=== PATIENT | male | born 1970 | race African-American/Black ===

== ENCOUNTER 2024-04-12 13:18 | Emergency (ER) | payer MEDICARE, MEDICAID, SELFPAY ==
[2024-04-12 13:36] VITALS: BP 171/90; PULSE 68; RESP 18; TEMP 36.8; O2SAT 99; BMI 30.5
--- NOTE | 2024-04-12 13:42 | XR_ITS ---
Examination: Knee, right , 3 views Technique: Knee AP, lateral, oblique 3 views Date and time of exam: April 12, 2024 1406 hours INDICATIONS: Injury to the knee today, knee pain. FINDINGS: No acute fracture No dislocation Moderate knee effusion Advanced tricompartment osteoarthritis with small ossified joint bodies anterior posterior knee joint IMPRESSION: No acute fracture
--- NOTE | 2024-04-12 13:42 | XR_ITS ---
Examination: Lumbar spine 3 views Technique one AP lateral coned lateral lower lumbar spine 3 views Exam date and time: April 12, 2024 1416 hours INDICATIONS: Injury to lower back today, lower back pain FINDINGS: Adequate alignment lumbar vertebral bodies No lumbar fracture Mild disc narrowing lower 3 lumbar levels No spondylolisthesis IMPRESSION: No lumbar fracture
--- NOTE | 2024-04-12 13:42 | XR_ITS ---
Examination: Thoracic spine 3 views Technique one AP lateral coned lateral upper dorsal spine 3 views Exam date and time: April 12, 2024 1413 hours INDICATIONS: Injury to the mid back today, mid back pain. FINDINGS: Adequate alignment thoracic vertebral bodies No fracture Mild to moderate thoracic disc narrowing IMPRESSION: No thoracic fracture
[2024-04-12] MEDS: HYDROcodone/APAP 5/325 TABLET 1 TAB PO (13:47)
[2024-04-12] MEDS: IBUPROFEN TAB 400 MG TABLET 800 MG PO (13:47)
--- NOTE | 2024-04-12 15:09 | PD.EDLOWEX ---
Lower Extremity Injury RME/HPI General Chief Complaint: Extremity Injury, Lower Stated Complaint: RIGHT KNEE AND BACK INJURY POST FALL STORE Time Seen by Provider: 04/12/24 13:38 Arrival date/time: 04/12/24 13:18 53-year-old male presents to the emergency department a stating he was at the local supermarket today and fell while in the bathroom on a puddle of water patient reports twisting his right knee and lower back pain patient reports no head or neck injury Limitations: no limitations Related Data Previous Rx's ?Medication ?Instructions ?Recorded flash glucose scanning reader #1 ea 02/18/22 (FreeStyle Esvin 2 [place]) flash glucose sensor (FreeStyle #1 ea 03/27/22 Esvin 2 Sensor kit) hydrochlorothiazide 25 mg tablet 25 mg PO QAM #30 tabs 03/27/22 blood pressure monitor #1 ea 04/05/22 arm brace (Wrist Brace) #1 ea 05/03/22 atorvastatin 80 mg tablet 80 mg PO QPM #30 tabs 05/03/22 diclofenac sodium 1 % topical gel 2 g topical QID #100 grams 05/03/22 (Voltaren Arthritis Pain) empagliflozin 10 mg tablet 10 mg PO QAM #30 tabs 05/03/22 (Jardiance) losartan 50 mg tablet 100 mg (2 x 50 mg) PO QDAY #60 tabs 05/03/22 metformin 1,000 mg tablet 1,000 mg PO BID #120 tabs 05/03/22 hydrocodone 5 mg-acetaminophen 325 1 tab PO BID PRN pain #10 tabs 04/12/24 mg tablet ibuprofen 800 mg tablet 800 mg PO TID PRN pain #30 tabs 04/12/24 Allergies Allergy/AdvReac Type Severity Reaction Status Date / Time No Known Allergies Allergy Verified 04/12/24 13:20 Review of Systems Review of Systems Systems Reviewed: All systems reviewed, normal except as documented Constitutional Constitutional: Reports system reviewed and no additional complaints, except as documented, Denies fever(s) and Denies headache(s) Eyes Eyes: Reports system reviewed and no additional complaints, except as documented and Denies blurry vision ENT Ears, Nose, Mouth, and Throat: Reports system reviewed and no additional complaints, except as documented, Denies headache(s), Denies nasal congestion, Denies nasal discharge and Denies neck pain Cardiovascular Cardiovascular: Reports system reviewed and no additional complaints, except as documented, Denies chest pain and Denies dyspnea Respiratory Respiratory: Reports system reviewed and no additional complaints, except as documented, Denies chest congestion, Denies cough and Denies dyspnea Gastrointestinal Gastrointestinal: Reports system reviewed and no additional complaints, except as documented and Denies abdominal pain Musculoskeletal Musculoskeletal: Reports system reviewed and no additional complaints, except as documented, Reports abnormal gait, Reports arthralgias, Reports joint swelling, Denies neck pain, Denies numbness, Reports stiffness and Denies tingling Integumentary/Breasts Skin/Breast: Reports system reviewed and no additional complaints, except as documented and Denies rash Neurologic Neurologic: Reports system reviewed and no additional complaints, except as documented, Reports as per HPI, Reports abnormal gait, Denies headache(s), Denies numbness and Denies tingling Past Medical History Past Medical History CARDIAC: Positive Hypercholesterolemia and Hypertension; Negative Congestive Heart Failure RESPIRATORY: Negative Chronic Obstructive Pulmonary Disease (COPD) GENITOURINARY: Negative Renal Disease ENDOCRINE: Positive Diabetes Mellitus Type 2; Negative Diabetes Mellitus Type 1 Social History SMOKING STATUS: Never smoker SUBSTANCE USE: does not use OCCUPATION: Retired ED Exam General Limitations: Present no limitations General appearance: Present alert and in no apparent distress Head Head exam: Present atraumatic, normocephalic and normal inspection Eye Eye exam: Present normal appearance, PERRL and EOMI; Absent conjunctival injection ENT ENT exam: Present normal exam, normal oropharynx and mucous membranes moist Neck Neck exam: Present normal inspection, full ROM and trachea midline Chest Chest inspection: Present normal inspection and symmetric chest wall rise Respiratory Respiratory exam: Present normal lung sounds bilaterally Cardiovascular Cardiovascular exam: Present regular rate, normal rhythm and normal heart sounds Abdominal Exam Abdominal exam: Present soft and normal bowel sounds; Absent distention, tenderness, guarding, rebound or rigidity Extremities Exam Extremities exam: Present full ROM, tenderness, normal capillary refill and joint swelling; Absent pedal edema or calf tenderness Back Exam Back exam: Present normal inspection and full ROM Neurological Exam Neurological exam: Present alert, oriented X3, CN II-XII intact, normal gait and reflexes normal; Absent motor sensory deficit Psychiatric Psychiatric exam: Present normal affect and normal mood Skin Skin exam: Present warm, dry, intact and normal color; Absent rash Course Quality Measures none Orders Category Date Time Status Crutches .NOW Care 04/12/24 15:13 Active juancho wrap [Splint / Immobilizer] STAT Care 04/12/24 15:13 Active XR knee RT 3V Stat Exams 04/12/24 13:42 Completed XR lumbar spine 2-3V Stat Exams 04/12/24 13:42 Completed XR thoracic spine 3V Stat Exams 04/12/24 13:42 Completed HYDROcodone*/APAP 5/325 [[place] 5/325] Med 04/12/24 13:42 Discontinued 1 tab PO X1 ONE Ibuprofen Tab [Motrin Tab] Med 04/12/24 13:42 Discontinued 800 mg PO X1 ONE Vital Signs Vital signs: Vital Signs Temperature 98.3 F 04/12/24 13:36 Pulse Rate 68 04/12/24 13:36 Respiratory Rate 18 04/12/24 13:36 Blood Pressure 171/90 H 04/12/24 13:36 Pulse Oximetry (%) 99 04/12/24 13:36 Oxygen Delivery Method Room Air 04/12/24 13:36 O2 saturation 99% room air WNL Extremity Injury, Lower MDM Narrative MDM Narrative:: 53-year-old male presents to the emergency department a stating he was at the local [employer] today and fell while in the bathroom on a puddle of water patient reports twisting his right knee and lower back pain patient reports no head or neck injury On exam patient well-appearing patient does not appear ill or toxic and in no acute distress On exam patient does have tenderness and swelling to the right knee X-ray of the right knee obtained no acute fracture dislocation noted X-ray of lumbar spine obtained as well as thoracic spine no acute fracture noted Explained to the patient although the x-rays are normal I do suspect he has ligamentous tear and will require outpatient MRI Patient medicated here for pain given crutches and Juancho wrap Patient discharged home in no distress to follow-up with primary care doctor in the next 24 to 48 hours and for any worsening symptoms to return to the ER immediately Patient data External records reviewed:: [facility] previous records Clinical information provided by:: patient Social determinants that could affect healthcare access:: none Patient has the following chronic illnesses:: See history How is presenting disease/condition affected by chronic disease/condition?: no chronic disease Evaluation data The following diagnostics were reviewed and interpreted by me:: radiology exam(s) Lab and/or radiology exams considered but not ordered:: Radiology obtain Interpretation Summary: Reviewed by me Medications / Prescriptions Medications or Prescriptions considered but not ordered:: Given Medication administrations:: Medication Administration History Discontinued Medications Hydrocodone Bitart/Acetaminophen (Hydrocodone/Apap 5/325 Tablet) 1 tab PO X1 ONE Stop: 04/12/24 13:43 Last Admin: 04/12/24 13:47 Dose: 1 tab Documented By: Ibuprofen (Ibuprofen Tab 400 Mg Tablet) 800 mg PO X1 ONE Stop: 04/12/24 13:43 Last Admin: 04/12/24 13:47 Dose: 800 mg Documented By: Given Consultations Consultation(s) initiated? (list below): No Diagnosis Extremity Injury, Lower Differential Diagnosis: acute internal derangement of knee and other (Knee sprain, knee fracture) Most likely diagnosis given after review of the tests above:: Knee sprain Admission Indicated Admission indicated?: not indicated Admission Request Was there a request for admission?: No Disposition Plan Disposition Plan: Discharge Discharge Attestation Discharge Attestation: The patient and all family members were given an opportunity to ask questions and understood the discharge instructions. Discharge instructions specifically effects, indications for sooner follow up or return to the emergency department, and the expected course of current diagnosis. Patient condition: Stable Discharge Plan Plan Patient Disposition: HOME (Self Care) Disposition Comment: Stable Prescriptions/Referrals Prescriptions/Med Rec: New ibuprofen 800 mg tablet 800 mg PO TID PRN (Reason: pain) Qty: 30 0RF hydrocodone-acetaminophen 5-325 mg tablet 1 tab PO BID MDD 10 PRN (Reason: pain) Qty: 10 0RF No Action (DME) blood pressure monitor Kit See Rx Instructions .Route Qty: 1 0RF Rx Instructions: As directed (DME) Wrist Brace Misc See Rx Instructions .Route Qty: 1 0RF Rx Instructions: As directed metformin 1,000 mg tablet 1,000 mg PO BID Qty: 120 3RF losartan 50 mg tablet 100 mg PO QDAY Qty: 60 3RF Jardiance 10 mg tablet 10 mg PO QAM Qty: 30 0RF atorvastatin 80 mg tablet 80 mg PO QPM Qty: 30 0RF diclofenac sodium [Voltaren Arthritis Pain] 1 % gel 2 g topical QID Qty: 100 0RF Rx Instructions: apply to wrist or hand as needed for pain (DME) FreeStyle Esvin 2 Sensor Kit See Rx Instructions .Route Qty: 1 0RF Rx Instructions: As directed hydrochlorothiazide 25 mg tablet 25 mg PO QAM Qty: 30 0RF (DME) FreeStyle Esvin 2 [place] Misc See Rx Instructions .Route Qty: 1 0RF Rx Instructions: As directed Referrals: Jae Mccormick MD [Primary Care Provider] - 04/13/24 Problem List Clinical Impression: Acute internal derangement of knee, Lumbar radiculopathy Patient/Caregiver Discharge Instructions Education Materials: Back Safety: Lifting Additional Instructions: Please follow up with your primary care doctor in the next 24-48hrs for any worsening symptoms return here immediately Please follow-up with your primary care doctor as they can do an MRI of your right knee Print Language: Thai Stand Alone Forms: Twyla Award Info., Work/School Release, Patient Portal Info Letter PA/INSTRUCTOR TAP DANCING Supervising Physician PA/INSTRUCTOR TAP DANCING Supervising Physician: dr lincoln
== END 2024-04-12 18:09 | disposition home or self-care (01) ==
PROVIDERS: Emergency Provider Emergency Medicine; PCP Family Medicine
DX: M54.16 Radiculopathy, lumbar region (principal); M23.91 Unspecified internal derangement of right knee
CPT/HCPCS: 72072; 72100; 73562; 99283; A9270

== ENCOUNTER → 2024-05-13 | Outpatient (CLI) | payer MEDICARE, MEDICAID, SELFPAY ==
--- NOTE | 2024-05-13 10:30 | XR_ITS ---
Exam: MRI knee without contrast, right Date and time of exam: May 13, 2024 1003 hours INDICATIONS: Anterior right knee pain joint locking clicking stiffness swelling 1 month after a fall with injury to the knee Technique: Multiple axial, coronal, and sagittal sections on the knee have been obtained. T2-Weighted sagittal, fat-suppressed images, TR 3,500, TE 62, T2 weighted coronal fat-saturated images, TR 3,500, TE 62 Proton density sagittal sections, TR 1800, TE 31. T-1 weighted coronal images, TR 524, TE 13.0 Findings: Medial meniscus anterior horn intact. Medial meniscus, body large vertical tear coronal image 13. Posterior horn medial meniscus large vertical tear toward the inner margin sagittal image 7. Lateral meniscus anterior horn is intact Lateral meniscus, body truncation inner margin Posterior horn lateral meniscus complex tear Anterior cruciate ligament absent Posterior cruciate ligament severely attenuated. Knee effusion is moderate. Quadriceps and patellar tendons appear intact. There is no evidence of tendinosis. Medial patellar facet demonstrates moderate thinning. Lateral patellar facet cartilage demonstrates moderate thinning. Trochlear cartilage demonstrates moderate thinning. Marrow signal adequate. Medial collateral ligament appears intact. No meniscocapsular separation is seen. Illiotibial band and fibular collateral ligament are intact. Biceps femoris tendons appear intact. Medial femoral condylar articular cartilage demonstrates severe thinning. Lateral femoral condylar articular cartilage demonstratessevere thinning. Tibial plateau cartilage demonstrates severe thinning. Impression: Medial lateral meniscus tears Absent anterior cruciate ligament Severely attenuated posterior cruciate ligament
== END | disposition home or self-care (01) ==
LOC: SMRI 09:47
PROVIDERS: PCP Physician Assistant; Referring Provider Physician Assistant; Visit Provider Physician Assistant
DX: S83.241A Other tear of medial meniscus, current injury, right knee, initial encounter (principal); X58.XXXA Exposure to other specified factors, initial encounter
CPT/HCPCS: 73721

== ENCOUNTER → 2024-06-04 | Outpatient (CLI) | payer MEDICARE, MEDICAID, SELFPAY ==
--- NOTE | 2024-06-04 14:45 | XR_ITS ---
Examination: MRI lumbar spine without contrast Date and time of exam: June 14, 2024 1514 hours INDICATIONS: Lower back pain radiating down both legs paresthesias in both legs after falling 2 months ago TECHNIQUE: Multiple MRI axial sagittal images lumbar spine FINDINGS: Adequate alignment lumbar vertebral bodies on the lateral view No lumbar fracture Disc desiccation and moderate distention posteriorly L4-L5 L5-S1 no disc protrusion L4-L5 partially extruded 7 mm central left paracentral disc severely indenting the ventral margin thecal sac including moderate left L4 ganglionic compression L3-L4 no disc protrusion L2-L3 no disc protrusion L1-L2 no disc protrusion IMPRESSION: L4-L5 large extruded central left paracentral disc severely indenting the ventral margin thecal sac with moderate left L4 ganglionic compression
== END | disposition home or self-care (01) ==
LOC: SMRI 14:23
PROVIDERS: PCP Physician Assistant Medical; Referring Provider Physician Assistant Medical; Visit Provider Physician Assistant Medical
DX: M51.26 Other intervertebral disc displacement, lumbar region (principal); G95.29 Other cord compression
CPT/HCPCS: 72148

== ENCOUNTER 2024-06-29 13:10 | Outpatient (AMB) | payer MEDICARE, MEDICAID, SELFPAY ==
[2024-06-29 13:19] VITALS: BP 131/75; PULSE 68; RESP 18; TEMP 36.5; O2SAT 94; BMI 30.4
--- NOTE | 2024-06-29 13:19 | ORTHONT_ITS ---
Vital signs 06/29/24 13:19 Height 1.7 m Height Method Stated Weight 87.997 kg Weight Measurement Method Standing Scale BMI 30.4 BP 131/75 H Blood Pressure Source Automatic Cuff Blood Pressure Location Right Upper Arm Position Sitting Respiration 18 Pulse 68 Pulse Source Monitor Temp 97.7 F Temp Source Temporal Artery Scan Pulse Oximetry (%) 94 L Oxygen Delivery Method Room Air Med/Allergies Allergies & Medications Allergies No Known Allergies Allergy (Verified 06/29/24 13:20) Medication Reconciliation flash glucose scanning reader (Blue Dot WorldStyle Esvin 2 [place]) #1 ea 02/18/22 [Rx Conf irmed 06/29/24] flash glucose sensor (FreeStyle Esvin 2 Sensor kit) #1 ea 03/27/22 [Rx Confirmed 06/29/24] hydrochlorothiazide 25 mg tablet 25 mg PO QAM #30 tabs 03/27/22 [Rx Confirmed 06/29/24] blood pressure monitor #1 ea 04/05/22 [Rx Confirmed 06/29/24] arm brace (Wrist Brace) #1 ea 05/03/22 [Rx Confirmed 06/29/24] atorvastatin 80 mg tablet 80 mg PO QPM #30 tabs 05/03/22 [Rx Confirmed 06/29/24] diclofenac sodium 1 % topical gel (Voltaren Arthritis Pain) 2 g topical QID #100 grams 05/03/22 [Rx Confirmed 06/29/24] empagliflozin 10 mg tablet (Jardiance) 10 mg PO QAM #30 tabs 05/03/22 [Rx Confi rmed 06/29/24] losartan 50 mg tablet 100 mg (2 x 50 mg) PO QDAY #60 tabs 05/03/22 [Rx Confirmed 06/29/24] metformin 1,000 mg tablet 1,000 mg PO BID #120 tabs 05/03/22 [Rx Confirmed 06/29/24] hydrocodone 5 mg-acetaminophen 325 mg tablet 1 tab PO BID PRN pain #10 tabs 04/12/24 [Rx Confirmed 06/29/24] ibuprofen 800 mg tablet 800 mg PO TID PRN pain #30 tabs 04/12/24 [Rx Confirmed 06/29/24] meloxicam 7.5 mg tablet 7.5 mg PO QDAY #45 tabs 06/29/24 [Rx] Exam Exam Breathing is nonlabored. Patient has a normal mood and affect. Bilateral extremities were evaluated and demonstrates sensation intact to light touch. Palpable pedal pulses are present. No significant edema is present. Bilateral hips were examined. The patient has no pain with log roll of the hips. Internal rotation to 30 degrees and external rotation to 30 degrees is painless. Negative FADIR. Left knee was examined today. The left knee is in reasonable alignment. Range of motion from 0-120 degrees. Knee is stable to varus and valgus as well as AP translation with <5mm. Patient has a negative Mc[place]rays. There is no pain with patellofemoral compression and no crepitus noted. The knee is nontender to palpation. The right knee was also examined. The right knee is in varus alignment. Range of motion from 0-115 degrees. Knee is stable to varus and valgus as well as AP translation with <5mm. Patient has a negative Mc[place]rays. There is no pain with patellofemoral compression and no crepitus noted. The knee is tender to palpation Diffusely Right knee x-rays demonstrate significant joint space narrowing with osteophytes. The patient also has an MRI that was available to review. The MRIs dated 05/13/2024. This demonstrates severe cartilage loss of the tibial plateau, medial and lateral meniscus tears, and absent ACL Assessment and Plan Problem List (1) Arthritis of right knee: Status: Acute Plan: We discussed the natural history of the patient's problem. We discussed that he has severe arthritis of the right knee. I would like to get weightbearing x- rays to better evaluate the severity but I do suspect that he has significant arthritis based on the MRI and nonweightbearing x-rays. We discussed different treatment options including anti-inflammatories including meloxicam. We also discussed we would give him a cortisone injection today Recommend knee cortisone injection as patient would like to proceed with conservative treatment at this time. The risks and benefits of the procedure were reviewed with the patient and patient gave verbal consent to continue with the procedure. Procedure: performed by Dr. Hudson Using sterile technique the Right knee was thoroughly prepped with alcohol, and approximately 1 cc of Kenalog 40 mg/mL and 4 cc of 1% lidocaine was injected without resistance into the medial tibial femoral joint space. The patient tolerated the procedure. Office Procedures GNS Level of Care Nursing/Assessment Patient Status: Initial/New Patient Nursing Assessment/Reassesment: Medication Reconciliation and Update PMH in EMR Coordination of Care: Complex Care and Chronic Disease 1-5, Consent,records obtained, informed consent, Education Simp Pt/Fam, 1 Ins Authorization, Lab and Imaging orders, Results/Orders obtained and Staff clarify orders New Patient Charge New Patient Point Assignment: 1104 New Patient Point Charge: SURGICAL ASSISTANT CERTIFIED Level 3 (0140-0032) MA Intake Visit Data Collection New Patient or Established: Established Patient (seen at [facility] within 3 years) Reason for Visit:: RT KNEE FALL Seen by Clinical Staff ONLY (RN/MA): No Fudger Required: No PCP or OBGYN visit in last 3 months: Yes Hx Now: No Do You Feel Safe at Home: Yes Authorities Contacted: N/A Questionairres Past Medical History Past Medical History Have you ever been diagnosed with any of the following: Cardiology Problems Hypercholesterolemia: Yes Congestive Heart Failure: No Hypertension: Yes Respiratory Problems Chronic Obstructive Pulmonary Disease (COPD): No Smoking: No Smoking Cessation Counseling: No Smoking Exposure: No Genital/Urinary Problems Renal Disease: No Endocrine Problems Diabetes Mellitus Type 1: No Diabetes Mellitus Type 2: Yes Subjective Visit Visit for: follow up visit and knee (RT KNEE ) Immunization / Flu Flu Vaccine in the Last 12 Months: No Flu Vaccine Exclusion Criteria: Refused by Patient History of Present Illness Chief complaint: Right knee pain Mayur is a pleasant 53-year-old male with right knee pain. This happened after a fall where he hit a toilet with his knee. He reports significant pain since then. Pain is resolving somewhat. He has tried topical anti-inflammatories. Personal History Red flag PMH: none Pain Pain level (0-10): 5 Pain duration: 03/2024 Pain location: anterior (RIGHT KNEE ) Pain quality: sharp and aching Pain timing: night and increases with activity Associated signs & symptoms: numbness and stiffness Ambulatory data Ambulatory device: none Walking distance (minutes): 1 Treatments Number of previous injections: 0 Number of Physical Therapy sessions: 0 Improvement with NSAIDS: n/a Review of Systems Review of Systems: All systems negative unless otherwise noted in HPI.
--- NOTE | 2024-06-29 13:22 | XR_ITS ---
Examination: Right knee 4 views TECHNIQUE: Standing AP, lateral, axial, standing PA flexion right knee 4 views Exam date and time: June 29, 2024 1343 hours INDICATIONS: Patient fell March 2024 with injury to the knee, persistent knee pain FINDINGS: No acute fracture Advanced tricompartment osteoarthritis Ossified joint bodies multiple and the posterior and anterior joint space No patellar dislocation IMPRESSION: Advanced tricompartment osteoarthritis
== END 2024-06-29 13:43 | disposition home or self-care (01) ==
PROVIDERS: PCP Physician Assistant Medical; Referring Provider Physician Assistant Medical; Supervising Provider Orthopaedic Surgery Adult Reconstructive Orthopaedic Surgery; Visit Provider Orthopaedic Surgery Adult Reconstructive Orthopaedic Surgery
DX: M17.11 Unilateral primary osteoarthritis, right knee (principal); I10 Essential (primary) hypertension; E78.00 Pure hypercholesterolemia, unspecified
CPT/HCPCS: 20610; 73564; 99203; J3301; J3490; G0463

== ENCOUNTER 2024-07-20 10:35 | Emergency (ER) | payer MEDICARE, MEDICAID, SELFPAY ==
[2024-07-20 10:36] VITALS: BMI 30.4
[2024-07-20 10:42] VITALS: BP 146/84; PULSE 87; RESP 19; TEMP 36.8; O2SAT 96
--- NOTE | 2024-07-20 11:02 | XR_ITS ---
Examination: CT abdomen and pelvis without contrast. Coronal 3-D reconstructions. Sagittal 2-D reconstructions. Date and time of exam:July 20, 2024 1220 hours INDICATIONS: Left-sided flank pain radiating to the pelvic area today CTDI: vol (mGy): 8.51 DLP: (mGycm): 573 Technique: Axial images of the abdomen have been obtained, 3 mm slice thickness Intravenous contrast material has not been administered. Low dose protocols were performed. One or more of the following dose reduction techniques were used; automated exposure control, adjustment of the mA and/or KV according to patient size, use of iterative reconstruction technique. Findings: No focal liver or splenic lesions No gallstones No pancreatic or adrenal mass No renal or ureteral calculi, no hydronephrosis 20 mm fat-containing umbilical hernia Normal appendix No bowel obstruction No diverticulitis Transverse prostate dimension 5.3 cm No bladder mass or bladder calculi Small fat-containing right inguinal hernia Mild disc narrowing posteriorly L4-L5 IMPRESSION: No renal or ureteral calculi, no hydronephrosis Normal appendix Moderate prostatomegaly
--- NOTE | 2024-07-20 11:03 | PD.EDRME ---
Rapid Medical Screening Exam RME Arrival date/time: 07/20/24 10:35 53-year-old male with a history of hyperlipidemia, type 2 diabetes presents to the emergency room with a chief complaint of left-sided flank pain that radiates down to the left groin and constipation x 1 week I have greeted and performed a focused initial assessment of this patient. A comprehensive ED assessment and evaluation of the patient, analysis of all test results, and completion of the medical decision making process will be conducted by additional ED providers. Chief Complaint: Back Pain/Injury Time Seen by Provider: 07/20/24 10:44 Vital signs: Vital Signs Temperature 98.2 F 07/20/24 10:42 Pulse Rate 87 07/20/24 10:42 Respiratory Rate 19 07/20/24 10:42 Blood Pressure 146/84 H 07/20/24 10:42 Pulse Oximetry (%) 96 07/20/24 10:42 Oxygen Delivery Method Room Air 07/20/24 10:42 Vital signs reviewed by provider: Yes
[2024-07-20 11:40] LABS: Collection Type, Urine Clean Catch
[2024-07-20 11:52] LABS: Basophils % (Auto) 1 % (0-2.5); Eosinophils # (Auto) 0.1 Thou/mm3 (0.0-0.5); Eosinophils % (Auto) 1 % (0-10); Hematocrit 48.2 % (41.0-53.0); Hemoglobin 16.9 g/dL (13.5-16.0); Immature Granulocytes % (Auto) 0 % (0-0); Immature Granulocytes Auto 0.01 Thou/mm3 (0.00-0.00); Lymphocytes # (Auto) 2.2 Thou/mm3 (1.0-4.8); Lymphocytes % (Auto) 35 % (10-50); Mean Corpuscular HGB Conc 35.1 g/dl (31.0-37.0); Mean Corpuscular Hemoglobin 28.8 pg (25.0-35.0); Mean Corpuscular Volume 82 fL (80-100); Monocytes # (Auto) 0.7 Thou/mm3 (0.0-0.8); Monocytes % (Auto) 11 % (0-12); Neutrophils # (Auto) 3.2 Thou/mm3 (1.8-7.7); Neutrophils % (Auto) 52 % (37-80); Nucleated Red Blood Cell % 0 /100 WBC (0); Platelet Count 254 Thou/mm3 (140-440); RDW Standard Deviation 38.9 fL (35.1-43.9); Red Blood Count 5.86 Miln/mm3 (4.50-5.90); White Blood Count 6.2 Thou/mm3 (3.8-10.6)
[2024-07-20 12:15] LABS: Alanine Aminotransferase 10 U/L (10-49); Albumin, Serum 4.8 gm/dL (3.5-5.0); Albumin/Globulin Ratio 1.3 (1.2-2.2); Alkaline Phosphatase 68 U/L (46-116); Anion Gap 9 (7-16); Aspartate Amino Transferase 17 U/L (0-34); BUN/Creatinine Ratio 11 Ratio (12-20); Blood Urea Nitrogen 24 mg/dL (9-23); Calcium 9.9 mg/dL (8.3-10.6); Calcium (Corrected) 9.9 mg/dL (8.5-10.1); Carbon Dioxide 28.1 mMol/L (20.0-31.0); Chloride 98 mMol/L (98-107); Creatinine (Component) 2.1 mg/dL (0.6-1.3); Estimated Creatinine Clearance 42.1 mL/min (>60); Globulin 3.6 gm/dL (2.3-3.5); Glucose 333 mg/dL (74-106); Lipase 66 U/L (12-53); Osmolality,Calculated 287 (275-295); Potassium 3.1 mMol/L (3.4-5.1); Sodium 135 mMol/L (136-145); Total Protein 8.4 gm/dL (5.7-8.2); eGFR 36 See Note
[2024-07-20 12:19] LABS: Bacteria,Urine Rare; Bilirubin,Urine Negative (Negative); Blood,Urine Negative (Negative); Clarity,Urine Clear (Clear/Hazy); Color,Urine Lt-Yellow (Lt Yel-Yel); Glucose, Urine 4+ (Negative); Ketones,Urine Trace (Negative); Leukocyte Esterase,Urine Negative (Negative); Nitrite,Urine Negative (Negative); PH,Urine 5.5 (5.0-7.0); Protein,Urine Negative (Neg - Trace); RBC,Urine 1 /hpf (0-3); Specific Gravity,Urine 1.034 (1.001-1.035); Squamous Epithelial Cell,Urine 3 /hpf (0-5); Urobilinogen,Urine Negative mg/dL (0.0-1.0); WBC,Urine 2 /hpf (0-5)
[2024-07-20] MEDS: KETOROLAC INJ 60 MG/2 ML VIAL 30 MG IM (12:31)
[2024-07-20] MEDS: MAGNESIUM CITRATE 300 ML BTL PO (12:32)
--- NOTE | 2024-07-20 15:45 | PD.EDADULT ---
ED General RME/HPI General Chief complaint: Back Pain/Injury Stated complaint: CHRONIC PAIN L) LOWER BACK TO GROIN, CONSTIPATION Time Seen by Provider: 07/20/24 10:44 Arrival date/time: 07/20/24 10:35 CC: Left low back pain that radiates laterally left to the groin. No prior history of similar events ongoing for 1 week waxes and wanes no OTC medicines taken. Patient denies fever chills painful urination bloody urination has a history of chronic constipation also has a history of diabetes hypertension hyperlipidemia. Patient is awake alert oriented nontoxic-appearing not in any acute distress. RME / HPI RME / HPI narrative: 07/20/24 10:35 53-year-old male with a history of hyperlipidemia, type 2 diabetes presents to the emergency room with a chief complaint of left-sided flank pain that radiates down to the left groin and constipation x 1 week I have greeted and performed a focused initial assessment of this patient. A comprehensive ED assessment and evaluation of the patient, analysis of all test results, and completion of the medical decision making process will be conducted by additional ED providers. Related Data Previous Rx's ?Medication ?Instructions ?Recorded flash glucose scanning reader #1 ea 02/18/22 (FreeStyle Esvin 2 [place]) flash glucose sensor (FreeStyle #1 ea 03/27/22 Esvin 2 Sensor kit) hydrochlorothiazide 25 mg tablet 25 mg PO QAM #30 tabs 03/27/22 blood pressure monitor #1 ea 04/05/22 arm brace (Wrist Brace) #1 ea 05/03/22 atorvastatin 80 mg tablet 80 mg PO QPM #30 tabs 05/03/22 diclofenac sodium 1 % topical gel 2 g topical QID #100 grams 05/03/22 (Voltaren Arthritis Pain) empagliflozin 10 mg tablet 10 mg PO QAM #30 tabs 05/03/22 (Jardiance) losartan 50 mg tablet 100 mg (2 x 50 mg) PO QDAY #60 tabs 05/03/22 metformin 1,000 mg tablet 1,000 mg PO BID #120 tabs 05/03/22 hydrocodone 5 mg-acetaminophen 325 1 tab PO BID PRN pain #10 tabs 04/12/24 mg tablet ibuprofen 800 mg tablet 800 mg PO TID PRN pain #30 tabs 04/12/24 meloxicam 7.5 mg tablet 7.5 mg PO QDAY #45 tabs 06/29/24 meloxicam 7.5 mg tablet 7.5 mg PO QDAY #10 tabs 07/20/24 Allergies Allergy/AdvReac Type Severity Reaction Status Date / Time No Known Allergies Allergy Verified 07/20/24 10:39 Review of Systems Review of Systems Narrative Review of Systems: GEN: No fever, no chills, no weight loss EYES: No discharge, no visual changes, no pain HEENT: No ear pain, no congestion, no sore throat PULM: No shortness of breath, no cough, no congestion CV: No chest pain, no dyspnea on exertion, no palpitations GI: No nausea, no vomiting, no diarrhea, no pain, no constipation : No frequency, no urgency, no dysuria MUSC/SKEL: No joint pain, + back pain SKIN: No rash PSYCH: No hallucinations, no depression HEME/LYMPH: No easy bleeding or bruising tendencies NEURO: No weakness, no headache Past Medical History Past Medical History CARDIAC: Positive Hypercholesterolemia and Hypertension; Negative Congestive Heart Failure RESPIRATORY: Negative Chronic Obstructive Pulmonary Disease (COPD), Smoking, Smoking Cessation Counseling or Smoking Exposure GENITOURINARY: Negative Renal Disease ENDOCRINE: Positive Diabetes Mellitus Type 2; Negative Diabetes Mellitus Type 1 Social History SMOKING STATUS: Never smoker SUBSTANCE USE: does not use OCCUPATION: Retired ED Exam Narrative Physical exam: [General: Not in any acute distress Head normocephalic HEENT: Within acceptable limits Neck is supple nontender Chest equal chest rise nontender to palpation Respiratory: Clear to auscultation no wheezes crackles or rubs CV: Rate rhythm is regular no murmurs rubs or clicks Abdomen is soft nontender no masses positive bowel sounds all 4 quadrants Back: Left sacral paraspinal tenderness with palpation there is also picked patient with palpation along the iliac crest laterally left, there is no pain with groin palpation no outpouching, no pain with lumbar or sacral spinous processes palpation no right sided paraspinal tenderness. No upper back tenderness. Skin: Intact no petechiae rash induration ulceration or crepitus Extremities: Moving all extremity against resistance cap refill less than 2 seconds neurosensory intact Neuro: Awake alert oriented x3 Glascow coma 15 no focal deficits] Course Quality Measures none Orders Category Date Time Status CT abdomen pelvis wo con Stat Exams 07/20/24 11:02 Completed CBC Stat Lab 07/20/24 11:20 Completed CMP [Comprehensive Metabolic Panel] Stat Lab 07/20/24 11:20 Completed Lipase Stat Lab 07/20/24 11:20 Completed UA [Urinalysis] Stat Lab 07/20/24 11:24 Completed Urine Culture Stat Lab 07/20/24 11:24 Received Ketorolac Inj [Toradol Inj] Med 07/20/24 11:02 Discontinued 30 mg IM X1 ONE Magnesium Citrate Liqd [Citrate of Magnesia Liqd] Med 07/20/24 11:03 Discontinued 300 ml PO X1 ONE Vital Signs Vital signs: Vital Signs Temperature 98.2 F 07/20/24 10:42 Pulse Rate 87 07/20/24 10:42 Respiratory Rate 19 07/20/24 10:42 Blood Pressure 146/84 H 07/20/24 10:42 Pulse Oximetry (%) 96 07/20/24 10:42 Oxygen Delivery Method Room Air 07/20/24 10:42 Discharge Plan Plan Patient Disposition: HOME (Self Care) Patient condition on transfer: Stable Prescriptions/Referrals Prescriptions/Med Rec: New meloxicam 7.5 mg tablet 7.5 mg PO QDAY Qty: 10 0RF No Action (DME) blood pressure monitor Kit See Rx Instructions .Route Qty: 1 0RF Rx Instructions: As directed (DME) Wrist Brace Misc See Rx Instructions .Route Qty: 1 0RF Rx Instructions: As directed metformin 1,000 mg tablet 1,000 mg PO BID Qty: 120 3RF losartan 50 mg tablet 100 mg PO QDAY Qty: 60 3RF Jardiance 10 mg tablet 10 mg PO QAM Qty: 30 0RF atorvastatin 80 mg tablet 80 mg PO QPM Qty: 30 0RF diclofenac sodium [Voltaren Arthritis Pain] 1 % gel 2 g topical QID Qty: 100 0RF Rx Instructions: apply to wrist or hand as needed for pain meloxicam 7.5 mg tablet 7.5 mg PO QDAY Qty: 45 3RF (DME) FreeStyle Esvin 2 Sensor Kit See Rx Instructions .Route Qty: 1 0RF Rx Instructions: As directed hydrochlorothiazide 25 mg tablet 25 mg PO QAM Qty: 30 0RF (DME) FreeStyle Esvin 2 [place] Misc See Rx Instructions .Route Qty: 1 0RF Rx Instructions: As directed ibuprofen 800 mg tablet 800 mg PO TID PRN (Reason: pain) Qty: 30 0RF hydrocodone-acetaminophen 5-325 mg tablet 1 tab PO BID MDD 10 PRN (Reason: pain) Qty: 10 0RF Referrals: Mariah Sparks PA-C [Primary Care Provider] - In 1 week Problem List Clinical Impression: Back pain, Renal insufficiency Patient/Caregiver Discharge Instructions Education Materials: ED Back and Neck Pain, General, ED Renal Insufficiency Print Language: Monegasque Stand Alone Forms: Twyla Award Info., Patient Portal Info Letter, Work/School Release PA/SALARY AND WAGE ADMINISTRATOR Supervising Physician PA/SALARY AND WAGE ADMINISTRATOR Supervising Physician: Tommie Roper ENP MDM Patient Acuity High Acuity (complete MDM) Narrative: Concerns whether this patient had urolithiasis hydroureter obstipation or constipation. All of these are ruled out as the pain is all reproducible and is musculoskeletal and/or visceral in nature. Reproduction is easy along the iliac crest but not in the sacrum. Clinical Information Provided by: patient Medical Records reviewed [facility] Chronic Illness/Social Conditions Explain: Diabetes hypertension hyperlipidemia Labs Lab(s) Interpretation(s): CBC shows no leukocytosis anemia thrombocytopenia CMP shows sodium 135 potassium 3.1 CO2 28.1 gap of 9 BUN 24 creatinine of 2.1 note when compared to BUN and creatinine 2 years ago this is significantly worsened. Patient is not aware of having significant renal impairment and will check with his primary care provider in the next appointment. No transaminitis or T. bili elevation. Lipase of 66. Urine is 4+ glucose no proteinuria no bacteria. Imaging Imaging Interpretation(s): CT abdomen pelvis interpreted by me and read by radiology is negative for any acute finding requires emergent or immediate intervention. Medication Administration(s) Medication Administration History Discontinued Medications Ketorolac Tromethamine (Ketorolac Inj 60 Mg/2 Ml Vial) 30 mg IM X1 ONE Stop: 07/20/24 11:03 Last Admin: 07/20/24 12:31 Dose: 30 mg Documented By: COLLEEN Magnesium Citrate (Magnesium Citrate 300 Ml Btl) 300 ml PO X1 ONE Stop: 07/20/24 11:04 Last Admin: 07/20/24 12:32 Dose: 300 ml Documented By: COLLEEN Diagnosis Differential Diagnosis ED Complaint MDM: Urolithiasis hydroureter hydronephrosis
== END 2024-07-20 16:03 | disposition home or self-care (01) ==
PROVIDERS: Nurse Practitioner Family; Emergency Provider Family Medicine; PCP Physician Assistant Medical
DX: N28.9 Disorder of kidney and ureter, unspecified (principal)
CPT/HCPCS: 36415; 74176; 80053; 81001; 83690; 85025; 87086; 96372; 99284; J1885; A9270

== ENCOUNTER 2024-12-14 14:45 | Outpatient (AMB) | payer MEDICARE, MEDICAID, SELFPAY ==
[2024-12-14 15:13] VITALS: BP 142/80; PULSE 63; RESP 18; TEMP 36.6; O2SAT 95; BMI 27.8
--- NOTE | 2024-12-14 15:13 | ORTHONT_ITS ---
Vital signs 12/14/24 15:13 Height 1.7 m Height Method Measured Weight 80.428 kg Weight Measurement Method Standing Scale BMI 27.8 BP 142/80 H Blood Pressure Source Automatic Cuff Blood Pressure Location Left Upper Arm Position Sitting Respiration 18 Pulse 63 Pulse Source Monitor Temp 97.8 F Temp Source Temporal Artery Scan Pulse Oximetry (%) 95 Oxygen Delivery Method Room Air Med/Allergies Allergies & Medications Allergies No Known Allergies Allergy (Verified 12/14/24 15:14) Medication Reconciliation flash glucose scanning reader ([employer]Style Esvin 2 [place]) #1 ea 02/18/22 [Rx Confirmed 12/14/24] flash glucose sensor (FreeStyle Esvin 2 Sensor kit) #1 ea 03/27/22 [Rx Confirmed 12/14/24] hydrochlorothiazide 25 mg tablet 25 mg PO QAM #30 tabs 03/27/22 [Rx Confirmed 12/14/24] blood pressure monitor #1 ea 04/05/22 [Rx Confirmed 12/14/24] arm brace (Wrist Brace) #1 ea 05/03/22 [Rx Confirmed 12/14/24] atorvastatin 80 mg tablet 80 mg PO QPM #30 tabs 05/03/22 [Rx Confirmed 12/14/24] diclofenac sodium 1 % topical gel (Voltaren Arthritis Pain) 2 g topical QID #100 grams 05/03/22 [Rx Confirmed 12/14/24] empagliflozin 10 mg tablet (Jardiance) 10 mg PO QAM #30 tabs 05/03/22 [Rx Confir med 12/14/24] losartan 50 mg tablet 100 mg (2 x 50 mg) PO QDAY #60 tabs 05/03/22 [Rx Confirmed 12/14/24] metformin 1,000 mg tablet 1,000 mg PO BID #120 tabs 05/03/22 [Rx Confirmed 12/14/24] hydrocodone 5 mg-acetaminophen 325 mg tablet 1 tab PO BID PRN pain #10 tabs 04/12/24 [Rx Confirmed 12/14/24] ibuprofen 800 mg tablet 800 mg PO TID PRN pain #30 tabs 04/12/24 [Rx Confirmed 12/14/24] meloxicam 7.5 mg tablet 7.5 mg PO QDAY #45 tabs 06/29/24 [Rx Confirmed 12/14/24] meloxicam 7.5 mg tablet 7.5 mg PO QDAY #10 tabs 07/20/24 [Rx Confirmed 12/14/24] Exam Exam Breathing is nonlabored. Patient has a normal mood and affect. Bilateral extremities were evaluated and demonstrates sensation intact to light touch. Palpable pedal pulses are present. No significant edema is present. Bilateral hips were examined. The patient has no pain with log roll of the hips. Internal rotation to 30 degrees and external rotation to 30 degrees is painless. Negative FADIR. Left knee was examined today. The left knee is in reasonable alignment. Range of motion from 0-120 degrees. Knee is stable to varus and valgus as well as AP translation with <5mm. Patient has a negative McMurrays. There is no pain with patellofemoral compression and no crepitus noted. The knee is nontender to palpation. The right knee was also examined. The right knee is in varus alignment. Range of motion from 0-115 degrees. Knee is stable to varus and valgus as well as AP translation with <5mm. Patient has a negative Mc[place]rays. There is no pain with patellofemoral compression and no crepitus noted. The knee is tender to palpation Diffusely Right knee x-rays demonstrate significant joint space narrowing with osteophytes. The patient also has an MRI that was available to review. The MRIs dated 05/13/2024. This demonstrates severe cartilage loss of the tibial plateau, medial and lateral meniscus tears, and absent ACL Assessment and Plan Problem List (1) Arthritis of right knee: Status: Acute Plan: We discussed the natural history of the patient's problem. We discussed that he has severe arthritis of the right knee. I would like to get weightbearing x- rays to better evaluate the severity but I do suspect that he has significant arthritis based on the MRI and nonweightbearing x-rays. We discussed different treatment options including anti-inflammatories including meloxicam. We also discussed we would give him a cortisone injection today In addition, he has recent increase in right shoulder and left knee pain. We will x-ray these joints Recommend knee cortisone injection as patient would like to proceed with conservative treatment at this time. The risks and benefits of the procedure were reviewed with the patient and patient gave verbal consent to continue with the procedure. Procedure: performed by Dr. Hudson Using sterile technique the Right knee was thoroughly prepped with alcohol, and approximately 1 cc of Depo-Medrol 80mg/mL and 4 cc of 0.2% ropivacaine was injected without resistance into the medial tibial femoral joint space. The patient tolerated the procedure. Office Procedures GNS Level of Care Nursing/Assessment Patient Status: Established Patient Nursing Assessment/Reassesment: Medication Reconciliation, Update PMH in EMR and Vital Signs Coordination of Care: Complex Care and Chronic Disease 1-5, Education Complex Pt/Fam, Consent,records obtained, informed consent, Results/Orders obtained and Staff clarify orders Established Patient Charge Established Patient Point Assignment: 95 Established Patient Point Charge: EP Level 3 (80-115) Surgical Proc/IM SQ injection Major Surgical Procedure: Yes (KNEE INJECTION ) Medication Given Medication Given Medication Given: Yes Documented Dose Given: 1 Route: Infiitration Medication Given Medication Given Medication Given: Yes Documented Dose Given: 4 Route: Infiitration Office Meds methylprednisolone acetate 80 mg/mL suspension for injection Performing Provider: Daryn Hudson MD Performing Location: [facility] Administered by: Daryn Hudson MD on 12/14/24 15:55 Dose Route Admin Location Dispensed Lot Number Expiration Date Pack age [facility] [employer] 80 mg intra-articular KNEE 1 mL [id number] 08/28/26 [id number] [employer] ropivacaine (PF) 2 mg/mL (0.2 %) injection solution Performing Provider: Daryn Hudson MD Performing Location: [facility] Administered by: Daryn Hudson MD on 12/14/24 15:55 Dose Route Admin Location Dispensed Lot Number Expiration Date Pack age [facility] [employer] Work[employer] 20 mL Infiltration KNEE 20 mL [id number] 04/30/27 [id number] [facility] Intake Visit Data Collection New Patient or Established: Established Patient (seen at [facility] within 3 years) Reason for Visit:: BILATERAL KNEE PAIN INJECTIONS Seen by Clinical Staff ONLY (RN/MA): No Cat Operator Required: No PCP or OBGYN visit in last 3 months: Yes Hx Now: No Do You Feel Safe at Home: Yes Authorities Contacted: N/A Questionairres Past Medical History Past Medical History Have you ever been diagnosed with any of the following: Cardiology Problems Hypercholesterolemia: Yes Congestive Heart Failure: No Hypertension: Yes Respiratory Problems Chronic Obstructive Pulmonary Disease (COPD): No Smoking: No Smoking Cessation Counseling: No Smoking Exposure: No Genital/Urinary Problems Renal Disease: No Endocrine Problems Diabetes Mellitus Type 1: No Diabetes Mellitus Type 2: Yes Subjective Visit Visit for: follow up visit and knee Immunization / Flu Flu Vaccine in the Last 12 Months: No Flu Vaccine Exclusion Criteria: Refused by Patient History of Present Illness Chief complaint: BILATERAL KNEE INJECTION Mayur is a pleasant 53-year-old male with right knee pain. This happened after a fall where he hit a toilet with his knee. He reports significant pain since then. Pain is resolving somewhat. He has tried topical anti-inflammatories. We gave him an injection at the last visit he would like another injection Personal History Red flag PMH: none Pain Pain level (0-10): 8 Pain duration: 03/2024 Pain location: anterior (RIGHT KNEE ) Pain quality: sharp and aching Pain timing: night and increases with activity Associated signs & symptoms: numbness and stiffness Ambulatory data Ambulatory device: none Walking distance (minutes): 1 Treatments Number of previous injections: 0 Number of Physical Therapy sessions: 0 Improvement with NSAIDS: n/a Review of Systems Review of Systems: All systems negative unless otherwise noted in HPI.
--- NOTE | 2024-12-14 15:25 | XR_ITS ---
Examination: Bilateral AP knees single view Left knee PA lateral axial 3 views TECHNIQUE: Bilateral AP knees standing single view Left knee PA standing flexion, standing lateral, axial left knee 3 views total 4 views Date and time: December 14, 2024 1536 hours INDICATIONS: Patient fell 9 months ago with injury to the right and left knees, knee pain FINDINGS: Moderate osteopenia Advanced narrowing medial lateral joint spaces right knee No fractures Advanced left knee tricompartment osteoarthritis including severe narrowing medial joint space No fractures IMPRESSION: Advanced narrowing medial lateral joint spaces right knee Advanced left knee tricompartment osteoarthritis
--- NOTE | 2024-12-14 15:25 | XR_ITS ---
Examination: Shoulder,right, 3 views Technique: Shoulder AP internal rotation, AP external rotation, Y view shoulder, 3 views Exam date and time :December 14, 2024 1556 hours INDICATIONS: Patient fell 9 months ago with injury to the right shoulder, right shoulder pain. FINDINGS: Moderate to advanced narrowing glenohumeral joint No shoulder fracture or dislocation Mild calcific tendinitis IMPRESSION: No shoulder fracture or dislocation Moderate to advanced narrowing glenohumeral joint
== END 2024-12-14 15:35 | disposition home or self-care (01) ==
PROVIDERS: PCP Physician Assistant Medical; Referring Provider Physician Assistant Medical; Supervising Provider Orthopaedic Surgery Adult Reconstructive Orthopaedic Surgery; Visit Provider Orthopaedic Surgery Adult Reconstructive Orthopaedic Surgery
DX: M17.11 Unilateral primary osteoarthritis, right knee (principal); M25.562 Pain in left knee; M25.511 Pain in right shoulder; I10 Essential (primary) hypertension; E78.00 Pure hypercholesterolemia, unspecified; E11.9 Type 2 diabetes mellitus without complications; S89.91XA Unspecified injury of right lower leg, initial encounter; W18.30XA Fall on same level, unspecified, initial encounter; W22.8XXA Striking against or struck by other objects, initial encounter
CPT/HCPCS: 20610; 73030; 73564; 99213; J1010; J2795; G0463

== ENCOUNTER 2024-12-28 09:33 | Outpatient (AMB) | payer MEDICARE, MEDICAID, SELFPAY ==
--- NOTE | 2024-12-28 09:47 | ORTHONT_ITS ---
Vital signs 12/28/24 09:50 Height 1.7 m Height Method Measured Weight 81.788 kg Weight Measurement Method Standing Scale BMI 28.3 BP 175/97 H Blood Pressure Source Automatic Cuff Blood Pressure Location Left Upper Arm Position Sitting Respiration 19 Pulse 62 Pulse Source Monitor Temp 97.9 F Temp Source Temporal Artery Scan Pulse Oximetry (%) 97 Oxygen Delivery Method Room Air Med/Allergies Allergies & Medications Allergies No Known Allergies Allergy (Verified 12/28/24 09:55) Medication Reconciliation flash glucose scanning reader (Extra LifeStyle Esvin 2 [place]) #1 ea 02/18/22 [Rx Confirmed 12/28/24] flash glucose sensor (FreeStyle Esvin 2 Sensor kit) #1 ea 03/27/22 [Rx Confirmed 12/28/24] hydrochlorothiazide 25 mg tablet 25 mg PO QAM #30 tabs 03/27/22 [Rx Confirmed 12/28/24] blood pressure monitor #1 ea 04/05/22 [Rx Confirmed 12/28/24] arm brace (Wrist Brace) #1 ea 05/03/22 [Rx Confirmed 12/28/24] atorvastatin 80 mg tablet 80 mg PO QPM #30 tabs 05/03/22 [Rx Confirmed 12/28/24] diclofenac sodium 1 % topical gel (Voltaren Arthritis Pain) 2 g topical QID #100 grams 05/03/22 [Rx Confirmed 12/28/24] empagliflozin 10 mg tablet (Jardiance) 10 mg PO QAM #30 tabs 05/03/22 [Rx Confir med 12/28/24] losartan 50 mg tablet 100 mg (2 x 50 mg) PO QDAY #60 tabs 05/03/22 [Rx Confirmed 12/28/24] metformin 1,000 mg tablet 1,000 mg PO BID #120 tabs 05/03/22 [Rx Confirmed 12/28/24] hydrocodone 5 mg-acetaminophen 325 mg tablet 1 tab PO BID PRN pain #10 tabs 04/12/24 [Rx Confirmed 12/28/24] ibuprofen 800 mg tablet 800 mg PO TID PRN pain #30 tabs 04/12/24 [Rx Confirmed 12/28/24] meloxicam 7.5 mg tablet 7.5 mg PO QDAY #45 tabs 06/29/24 [Rx Confirmed 12/28/24] meloxicam 7.5 mg tablet 7.5 mg PO QDAY #10 tabs 07/20/24 [Rx Confirmed 12/28/24] Exam Exam Breathing is nonlabored. Patient has a normal mood and affect. Bilateral extremities were evaluated and demonstrates sensation intact to light touch. Palpable pedal pulses are present. No significant edema is present. Bilateral hips were examined. The patient has no pain with log roll of the hips. Internal rotation to 30 degrees and external rotation to 30 degrees is painless. Negative FADIR. Left knee was examined today. The left knee is in reasonable alignment. Range of motion from 0-120 degrees. Knee is stable to varus and valgus as well as AP translation with <5mm. Patient has a negative McMurrays. There is no pain with patellofemoral compression and no crepitus noted. The knee is nontender to palpation. The right knee was also examined. The right knee is in varus alignment. Range of motion from 0-115 degrees. Knee is stable to varus and valgus as well as AP translation with <5mm. Patient has a negative McMurrays. There is no pain with patellofemoral compression and no crepitus noted. The knee is tender to palpation Diffusely Right knee x-rays demonstrate significant joint space narrowing with osteophytes. The patient also has an MRI that was available to review. The MRIs dated 05/13/2024. This demonstrates severe cartilage loss of the tibial plateau, medial and lateral meniscus tears, and absent ACL Assessment and Plan Problem List (1) Arthritis of right knee: Status: Acute (2) Degenerative arthritis of knee, bilateral: Status: Acute Plan: Patient is a 54-year-old male with left knee arthritis and right shoulder arthritis. We previously gave him an injection of his right knee and reports tremendous relief. He would like a left knee and right shoulder injections today. Recommend knee cortisone injection as patient would like to proceed with conservative treatment at this time. The risks and benefits of the procedure were reviewed with the patient and patient gave verbal consent to continue with the procedure. Procedure: performed by Dr. Hudson Using sterile technique the left knee was thoroughly prepped with alcohol, and approximately 1 cc of Depo-Medrol 80mg/mL and 4 cc of 0.2% ropivacaine was injected without resistance into the medial tibial femoral joint space. The patient tolerated the procedure. Recommend right shoulder intra-articular cortisone injection as patient would like to proceed with conservative treatment at this time. The risks and benefits of the procedure were reviewed with the patient and patient gave verbal consent to continue with the procedure. Procedure: performed by Dr. Hudson Using sterile technique the Right shoulder was thoroughly prepped with alcohol, and approximately 1 cc of Depo-Medrol 80mg/mL and 4 cc of 0.2% ropivacaine was injected without resistance into the medial tibial femoral joint space. The patient tolerated the procedure. (3) Right shoulder pain: Status: Acute Office Procedures GNS Level of Care Nursing/Assessment Patient Status: Established Patient Nursing Assessment/Reassesment: Medication Reconciliation, Update PMH in EMR and Vital Signs Coordination of Care: Complex Care and Chronic Disease 1-5, Education Complex Pt/Fam, Consent,records obtained, informed consent, Results/Orders obtained and Staff clarify orders Established Patient Charge Established Patient Point Assignment: 95 Established Patient Point Charge: EP Level 3 (80-115) Surgical Proc/IM SQ injection Minor Surgical Procedure: Yes (RIGHT SHOULDER/LEFT KNEE INJECTION) Medication Given Medication Given Medication Given: Yes Documented Dose Given: 1 Route: Infiitration Medication Given Medication Given Medication Given: Yes Documented Dose Given: 1 Route: Infiitration Medication Given Medication Given Medication Given: Yes Documented Dose Given: 4 Route: Infiitration Medication Given Medication Given Medication Given: Yes Documented Dose Given: 4 Route: Infiitration Office Meds methylprednisolone acetate 80 mg/mL suspension for injection Performing Provider: Daryn Hudson MD Performing Location: [facility] Administered by: Daryn Hudson MD on 12/28/24 13:00 Dose Route Admin Location Dispensed Lot Number Expiration Date Pack age [facility] Director [employer] 80 mg intra-articular 1 mL [id number] 09/27/26 [address]-8 7 [id number] [employer] methylprednisolone acetate 80 mg/mL suspension for injection Performing Provider: Daryn Hudson MD Performing Location: [facility] Administered by: Daryn Hudson MD on 12/28/24 13:00 Dose Route Admin Location Dispensed Lot Number Expiration Date [facility] age [facility] Director Funds Development 80 mg intra-articular 1 mL [id number] 09/27/26 [address]-1 7 [id number] [employer] ropivacaine (PF) 2 mg/mL (0.2 %) injection solution Performing Provider: Daryn Hudson MD Performing Location: [facility] Administered by: Daryn Hudson MD on 12/28/24 13:00 Dose Route Admin Location Dispensed Lot Number Expiration Date Pack age NDC NDC Director [employer] Development 20 mL Infiltration 20 mL [id number] 04/29/27 72903-857-91 [id number] [facility] ropivacaine (PF) 2 mg/mL (0.2 %) injection solution Performing Provider: Daryn Hudson MD Performing Location: [facility] Administered by: Daryn Hudson MD on 12/28/24 13:00 Dose Route Admin Location Dispensed Lot Number Expiration Date Pack age NDC NDC Director [employer] 20 mL Infiltration 20 mL [id number] 04/29/27 12759-148-85 [id number] [facility] Intake Visit Data Collection New Patient or Established: Established Patient (seen at [facility] within 3 years) Reason for Visit:: XRAY RESULTS Seen by Clinical Staff ONLY (RN/MA): No [employer] Required: No PCP or OBGYN visit in last 3 months: Yes Hx Now: No Do You Feel Safe at Home: Yes Authorities Contacted: N/A Questionairres Past Medical History Past Medical History Have you ever been diagnosed with any of the following: Cardiology Problems Hypercholesterolemia: Yes Congestive Heart Failure: No Hypertension: Yes Respiratory Problems Chronic Obstructive Pulmonary Disease (COPD): No Smoking: No Smoking Cessation Counseling: No Smoking Exposure: No Genital/Urinary Problems Renal Disease: No Endocrine Problems Diabetes Mellitus Type 1: No Diabetes Mellitus Type 2: Yes Subjective Visit Visit for: follow up visit and knee Immunization / Flu Flu Vaccine in the Last 12 Months: No Flu Vaccine Exclusion Criteria: Refused by Patient History of Present Illness Chief complaint: BILATERAL KNEE INJECTION Mayur is a pleasant 54-year-old male with right knee pain. This happened after a fall where he hit a toilet with his knee. He reports significant pain since then. Pain is resolving somewhat. He has tried topical anti-inflammatories. He has left knee arthritis as well as right shoulder arthritis. He would like an injection of both today. He has significant arthritis of both of those joints Personal History Red flag PMH: none Pain Pain level (0-10): 8 Pain duration: 03/2024 Pain location: anterior (RIGHT KNEE ) Pain quality: sharp and aching Pain timing: night and increases with activity Associated signs & symptoms: numbness and stiffness Ambulatory data Ambulatory device: none Walking distance (minutes): 1 Treatments Number of previous injections: 0 Number of Physical Therapy sessions: 0 Improvement with NSAIDS: n/a Review of Systems Review of Systems: All systems negative unless otherwise noted in HPI.
[2024-12-28 09:50] VITALS: BP 175/97; PULSE 62; RESP 19; TEMP 36.6; O2SAT 97; BMI 28.3
== END 2024-12-28 10:26 | disposition home or self-care (01) ==
LOC: HODSRG 09:33
PROVIDERS: PCP Physician Assistant Medical; Referring Provider Physician Assistant Medical; Supervising Provider Orthopaedic Surgery Adult Reconstructive Orthopaedic Surgery; Visit Provider Orthopaedic Surgery Adult Reconstructive Orthopaedic Surgery
DX: M17.0 Bilateral primary osteoarthritis of knee (principal); M19.011 Primary osteoarthritis, right shoulder; M25.561 Pain in right knee; M25.511 Pain in right shoulder; S89.91XD Unspecified injury of right lower leg, subsequent encounter; W19.XXXD Unspecified fall, subsequent encounter; I10 Essential (primary) hypertension; E78.00 Pure hypercholesterolemia, unspecified; E11.9 Type 2 diabetes mellitus without complications
CPT/HCPCS: 20610; 99213; J1010; J2795; G0463

== ENCOUNTER → 2025-02-16 | Outpatient (CLI) | payer MEDICARE, MEDICAID, SELFPAY ==
--- NOTE | 2025-02-16 | XR_ITS ---
EXAMINATION: PA lateral chest 2 views TECHNIQUE: Upright PA lateral chest 2 views Date and time: February 16, 2025, 0758 hours INDICATIONS: Preop, back surgery scheduled March 11, 2025, history chest pain FINDINGS: Normal heart size Minimal elevation right hemidiaphragm Minimal ectasia thoracic aorta. No pneumonia or pulmonary edema IMPRESSION: No active disease
[2025-02-16 08:28] LABS: Basophils # (Auto) 0.0 Thou/mm3 (0.0-0.2); Basophils % (Auto) 0 % (0-2.5); Eosinophils # (Auto) 0.0 Thou/mm3 (0.0-0.5); Eosinophils % (Auto) 1 % (0-10); Hematocrit 44.1 % (41.0-53.0); Hemoglobin 15.0 g/dL (13.5-16.0); Immature Granulocytes Auto 0.01 Thou/mm3 (0.00-0.00); Lymphocytes # (Auto) 2.3 Thou/mm3 (1.0-4.8); Lymphocytes % (Auto) 37 % (10-50); Mean Corpuscular HGB Conc 34.0 g/dl (31.0-37.0); Mean Corpuscular Hemoglobin 29.4 pg (25.0-35.0); Mean Corpuscular Volume 87 fL (80-100); Monocytes # (Auto) 0.6 Thou/mm3 (0.0-0.8); Monocytes % (Auto) 10 % (0-12); Neutrophils # (Auto) 3.3 Thou/mm3 (1.8-7.7); Neutrophils % (Auto) 53 % (37-80); Nucleated Red Blood Cell # 0.00 Thou/mm3 (0.00-0.00); Nucleated Red Blood Cell % 0 /100 WBC (0); Platelet Count 242 Thou/mm3 (140-440); RDW Standard Deviation 41.5 fL (35.1-43.9); Red Blood Count 5.10 Miln/mm3 (4.50-5.90); White Blood Count 6.2 Thou/mm3 (3.8-10.6)
[2025-02-16 08:46] LABS: Alanine Aminotransferase 12 U/L (10-49); Albumin, Serum 4.7 gm/dL (3.5-5.0); Albumin/Globulin Ratio 1.8 (1.2-2.2); Alkaline Phosphatase 56 U/L (46-116); Anion Gap 10 (7-16); Aspartate Amino Transferase 19 U/L (0-34); BUN/Creatinine Ratio 14 Ratio (12-20); Bilirubin,Total 0.8 mg/dL (0.3-1.2); Blood Urea Nitrogen 19 mg/dL (9-23); Calcium 9.8 mg/dL (8.3-10.6); Calcium (Corrected) 9.8 mg/dL (8.5-10.1); Carbon Dioxide 28.1 mMol/L (20.0-31.0); Chloride 104 mMol/L (98-107); Creatinine (Component) 1.4 mg/dL (0.6-1.3); Globulin 2.6 gm/dL (2.3-3.5); Glucose 123 mg/dL (74-106); Osmolality,Calculated 286 (275-295); Potassium 3.7 mMol/L (3.4-5.1); Sodium 142 mMol/L (136-145); Total Protein 7.3 gm/dL (5.7-8.2); eGFR 59 See Note
[2025-02-16 08:53] LABS: INR 0.9 (0.9-1.3); Partial Thromboplastin Time 27.8 Seconds (22.0-36.0); Prothrombin Time 10.1 Seconds (9.0-12.2)
[2025-02-16 09:05] LABS: Collection Type, Urine Clean Catch
[2025-02-16 09:29] LABS: Bilirubin,Urine Negative (Negative); Blood,Urine Negative (Negative); Clarity,Urine Clear (Clear/Hazy); Color,Urine Lt-Yellow (Lt Yel-Yel); Glucose, Urine 4+ (Negative); Ketones,Urine Negative (Negative); Leukocyte Esterase,Urine Negative (Negative); Nitrite,Urine Negative (Negative); PH,Urine 6.5 (5.0-7.0); Protein,Urine Trace (Neg - Trace); RBC,Urine 1 /hpf (0-3); Specific Gravity,Urine 1.025 (1.001-1.035); Squamous Epithelial Cell,Urine 2 /hpf (0-5); Urobilinogen,Urine Negative mg/dL (0.0-1.0); WBC,Urine < 1 /hpf (0-5)
== END | disposition home or self-care (01) ==
LOC: CDIM 07:29 → COPL 08:02
PROVIDERS: PCP Physician Assistant Medical; Referring Provider Specialist; Visit Provider Specialist
DX: Z01.818 Encounter for other preprocedural examination (principal)
CPT/HCPCS: 36415; 71046; 80053; 81001; 85025; 85610; 85730